=== PATIENT | male | born 1990 | race Asian ===

== ENCOUNTER 2019-01-25 02:00 | Inpatient (IN) | payer MEDICAID ==
[~2019-01-25] VITALS: Ht 177.8 cm; Wt 111.5 kg
[~2019-01-25 02:00] MED LIST: SULF1TAB60 PO; TRAM50TA2 PO
[2019-01-25] MEDS ORDERED: cloNIDine HCL 0.1 MG TAB ONE ×2 (02:20→02:26)
[2019-01-25] MEDS ORDERED: SODIUM CHLORIDE 0.9% 1,000 ML IV ONE (07:39)
[2019-01-25 08:41] LABS: Basophils # (auto) 0.1 uL; Basophils % (auto) 1.4 % (0.0-2.0); Eosinophils # (auto) 0.1 uL; Eosinophils % (auto) 1.3 % (0.0-7.0); Hemoglobin 14.7 g/dL (13.5-17.5); Lymphocytes # (auto) 2.4 uL; Lymphocytes % (auto) 24.9 % (10.0-50.0); Mean Corpuscular Hemoglobin 30.5 pg (28.0-32.0); Mean Corpuscular Volume 87.1 fL (80.0-100.0); Monocytes # (auto) 0.6 uL; Neutrophils # (auto) 6.3 uL; Neutrophils % (auto) 66.4 % (37.0-80.0); Platelet Count (auto) 223 10^3/uL (140-450); Red Blood Cells 4.81 10^6/uL (4.5-5.90); Red Cell Distribution Width 13.2 % (11.8-14.3); White Blood Cell 9.5 10^3/uL (4.4-10.8)
[2019-01-25] MEDS ORDERED: LABETALOL HCL 5 MG/ML ML 20ML VIAL IV ONE (09:00)
[2019-01-25] MEDS ORDERED: hydrALAZINE HCL 20 MG/ML VL IV ONE (09:00)
[2019-01-25 09:02] LABS: Albumin 3.8 g/dL (3.4-5.0); BUN/Creatinine Ratio 11.6; Calcium 8.4 mg/dL (8.5-10.1); Magnesium 2.3 mg/dL (1.6-2.6)
[2019-01-25 09:06] LABS: Bilirubin, Total 0.8 mg/dL (0.2-1.0); Total Protein 7.5 g/dL (6.4-8.2)
[2019-01-25 09:15] LABS: Potassium 4.1 mmol/L (3.5-5.1)
[2019-01-25] MEDS ORDERED: METOPROLOL TARTRATE 1MG/1ML-5ML VIAL IV ONE (09:15)
[2019-01-25] MEDS: NICARDIPINE 25MG/250ML BAG KIT 250 ML IV SCH ×2 (11:19→16:00)
[2019-01-25] MEDS ORDERED: IOHEXOL 300 MG/ML 100ML BOTTLE IJ ONE (12:04)
[2019-01-25] MEDS ORDERED: HYDROcodone-ACET 5/325MG TAB PO PRN (12:15)
[2019-01-25] MEDS ORDERED: amLODIPine BESYLATE 5 MG TAB PO ONE (12:15)
[2019-01-25] MEDS ORDERED: MORPHINE SULF INJ 2 MG/ML SYRINGE 1ML IV PRN (12:15)
[2019-01-25] MEDS ORDERED: ACETAMINOPHEN 500 MG TAB PO PRN (12:15)
[2019-01-25] MEDS ORDERED: NITROGLYCERIN 0.4 MG SL TAB SL PRN (12:15)
[2019-01-25] MEDS ORDERED: ONDANSETRON HCL 4 MG/2 ML VIAL IV PRN (12:15)
[2019-01-25 12:48] LABS: Alcohol, Urine < 3.0 mg/dL (0-5); Amphetamine Screen, Urine NEGATIVE (NEGATIVE); Barbiturate Scree,Urine NEGATIVE (NEGATIVE); Benzodiazephine Screen, Urine NEGATIVE (NEGATIVE); Cannabinoid Screen, Urine NEGATIVE (NEGATIVE); Cocaine Screen, Urine NEGATIVE (NEGATIVE); Opiate Scree,Urine NEGATIVE (NEGATIVE); Phencyclidine Screen, Urine NEGATIVE (NEGATIVE)
[2019-01-25] MEDS ORDERED: LABETALOL HCL 200 MG TAB PO PRN (15:15)
--- NOTE | 2019-01-25 19:24 | NUR ---
Telemetry admit from ER ANASTASIA LAZO admitted to Telemetry unit after SBAR received from jessa Gibbons RN. Patient oriented to LYLY GORE RN primary RN, unit, room, bed, and unit policies regarding patient care and visiting hours. Patient now on continuous telemetry monitoring, tele box # [id number] and telemetry reading on arrival to unit is sinus rhythm with [address] depression. Patient weighed by bedscale and encouraged to call if they need something. All questions and concerns addressed, patient verbalized understanding. Bed in lowest locked position, side rails up x2, call light within reach. Patient able to ambulate with steady gait noted. No s/s of distress. Will continue to monitor.
[2019-01-25 19:50] VITALS: BP 161/107
[2019-01-25] MEDS ORDERED: INFLUENZA QUAD 2018-2019 0.5 ML SYRG IM ONE (20:00)
--- NOTE | 2019-01-25 21:23 | NUR ---
Smoking AMA ANASTASIA LAZO states they want to leave the floor Against Medical Advice (AMA) to go outside and smoke. Patient encouraged to stay on floor and not smoke. Patient advised of the risks and benefits of leaving AMA. Patient verbalized understanding and signed required AMA form. No s/s of distress. Will continue to monitor.
[2019-01-25 21:54] VITALS: BP 161/107
[2019-01-25] MEDS: MORPHINE SULF INJ 2 MG/ML SYRINGE 1ML IV PRN (22:19)
--- NOTE | 2019-01-25 23:29 | NUR ---
Closing Note Patient lying in bed, awake and alert. No s/s of distress. Bed in lowest locked position, side rails up x2, call light within reach. Care endorsed to Harriet GODOY for continuation of care.
--- NOTE | 2019-01-25 23:30 | NUR ---
RECEIVED REPORT FROM JAYNE DESOUZA PATIENT IS SITTING UP IN BED EATING SANDWICH BROUGHT IN BY FAMILY NO S/S OF DISTRESS. PATIENT STATED PAIN LEVEL IS "LIKE A 1 OR A 2 RIGHT NOW" CALL LIGHT WITHIN REACH
[2019-01-25] MEDS: LABETALOL HCL 200 MG TAB PO SCH (23:37)
[2019-01-25] MEDS: LISINOPRIL 20 MG TAB PO SCH (23:38)
[2019-01-26 05:12] VITALS: BP 128/81
--- NOTE | 2019-01-26 07:21 | NUR ---
CLOSING NOTE REPORT ENDORSED TO DAY SHIFT RN PT IS RESTING IN BED. NO S/S OF DISTRESS CALL LIGHT WITHIN REACH
--- NOTE | 2019-01-26 07:30 | NUR ---
OPENING SHIFT PATIENT IS AWAKE, ALERT, AND ORIENTED X4. RESPIRATIONS EVEN AND UNLABORED. NO S/S OF DISTRESS, SOB, OR PAIN. DISCUSSED POC WITH PATIENT, PATIENT VERBALIZED UNDERSTANDING. BED IS IN LOWEST POSITION, SIDE RAILS UP X2, AND CALL LIGHT WITHIN REACH. WILL CONTINUE TO MONITOR Q1 HOUR AND PRN.
[2019-01-26 08:36] VITALS: BP 133/74
--- NOTE | 2019-01-26 10:00 | NUR ---
PATIENT DOWN TO SMOKE AMA IN CHART PATIENT REFUSES SMOKING CESSATION EDUCATION
[2019-01-26] MEDS: LABETALOL HCL 200 MG TAB PO SCH ×2 (10:22→21:32)
[2019-01-26] MEDS: amLODIPine BESYLATE 5 MG TAB PO SCH (10:22)
[2019-01-26] MEDS: LISINOPRIL 20 MG TAB PO SCH ×2 (10:23→21:32)
--- NOTE | 2019-01-26 12:10 | NUR ---
PATIENT DOWN TO SMOKE AMA IN CHART PATIENT REFUSES SMOKING CESSATION EDUCATION
[2019-01-26 13:00] VITALS: BP 155/59
--- NOTE | 2019-01-26 15:00 | NUR ---
PATIENT DOWN TO SMOKE AMA IN CHART PATIENT REFUSES SMOKING CESSATION EDUCATION
--- NOTE | 2019-01-26 16:16 | NUR ---
ELEVATED BP PAGED DR. Chad SPENCE LEFT A MESSAGE REGARDING PATIENT'S BLOOD PRESSURE/ LAB VALUES THERE IS CURRENTLY NO PRN BP MEDICATION AVAILABLE WILL AWAIT M.D. CALL BACK
--- NOTE | 2019-01-26 16:18 | NUR ---
SMOKING CESSATION EDUCATION PATIENT EDUCATED ON EFFECTS OF SMOKING CIGARETTES ON BLOOD VESSELS/ BLOOD PRESSURE PATIENT FAMILY AT BEDSIDE PATIENT HAS BEEN LEAVING TO SMOKE THROUGHOUT DAY, BLOOD PRESSURE IS ELEVATED PATIENT AND FAMILY VERBALIZED UNDERSTANDING
--- NOTE | 2019-01-26 16:39 | NUR ---
DR. Chad SPENCE CALLED BACK NEW ORDERS PLACED FOR PRN BP MEDICATION ORDERS READ BACK AND VERIFIED
[2019-01-26] MEDS ORDERED: hydrALAZINE HCL 20 MG/ML VL IV PRN (16:45)
[2019-01-26 16:58] VITALS: BP 162/87
--- NOTE | 2019-01-26 18:43 | NUR ---
END OF SHIFT PATIENT AWAKE IN BED WATCHING T.V. NO S/S OF DISTRESS, SOB, OR PAIN. BED IS IN LOWEST POSITION, SIDE RAILS UP X2, AND CALL LIGHT WITHIN REACH. WILL ENDORSE CARE TO MEDICAL INSURANCE VERIFIER R.N.
--- NOTE | 2019-01-26 18:43 | NUR ---
BP REASSESSMENT BP 130/70 mmHG after PRN HYDRALAZINE administered NO S/S OF DISTRESS, SOB, OR PAIN
[2019-01-26 18:44] VITALS: BP 130/70
--- NOTE | 2019-01-26 19:26 | NUR ---
RECEIVED PATIENT FROM DAY SHIFT RN. PATIENT RESTING IN BED. NO S/S OF DISTRESS NOTED. DENIED PAIN. POC INSTRUCTED AND ENCOURAGED PATIENT TO CALL FOR SADDLE CUTTER IF NEEDED. BED IN LOWEST POSITION WITH SIDE RAILS UP X 2. CALL GUNDERSON WITHIN REACH. CONTINUE TO MONITOR FOR CHANGES Q1H AND PRN.
--- NOTE | 2019-01-26 21:00 | NUR ---
PATIENT OFF FLOOR TO SMOKE.
--- NOTE | 2019-01-26 21:20 | NUR ---
PATIENT BACK TO FLOOR. NO S/S OF DISTRESS NOTED. CONTINUE CARE.
[2019-01-26 22:00] VITALS: BP 168/92
[2019-01-26] MEDS: MORPHINE SULF INJ 2 MG/ML SYRINGE 1ML IV PRN (23:13)
--- NOTE | 2019-01-26 23:14 | NUR ---
PATIENT C/O HEADACHE @ 03/23, OFFERED PATIENT TYLENOL AT FIRST, BUT PATIENT SAID THAT THE TYLENOL NOT HELP AND HE PREFERRED MORPHINE. MEDICATED PATIENT ORDERED PER PATIENT REQUESTED. CONTINUE TO MONITOR.
[2019-01-27] MEDS ORDERED: hydrALAZINE HCL 25 MG TAB PO ONE (00:30)
--- NOTE | 2019-01-27 00:48 | NUR ---
PATIENT OUT OF FLOOR TO SMOKE.
--- NOTE | 2019-01-27 01:04 | NUR ---
PATIENT BACK TO FLOOR, NO S/S OF DISTRESS NOTED. CONTINUE CARE.
[2019-01-27 04:53] VITALS: BP 142/89
--- NOTE | 2019-01-27 05:18 | NUR ---
PATIENT SLEEPING. NO S/S OF DISTRESS NOTED. CONTINUE CARE.
[2019-01-27 05:32] LABS: Basophils # (auto) 0.1 uL; Basophils % (auto) 1.1 % (0.0-2.0); Eosinophils # (auto) 0.2 uL; Hematocrit 43.5 % (41.0-53.0); Hemoglobin 14.6 g/dL (13.5-17.5); Lymphocytes # (auto) 3.2 uL; Lymphocytes % (auto) 30.3 % (10.0-50.0); Mean Corpuscular Hemoglobin 29.6 pg (28.0-32.0); Mean Corpuscular Hgb Conc. 33.6 g/dL (32.0-36.0); Monocytes # (auto) 0.8 uL; Monocytes % (auto) 8.1 % (0.0-12.0); Neutrophils # (auto) 6.1 uL; Neutrophils % (auto) 58.5 % (37.0-80.0); Nucleated Red Blood Cells % 0.1 %; Platelet Count (auto) 197 10^3/uL (140-450); Red Blood Cells 4.95 10^6/uL (4.5-5.90); Red Cell Distribution Width 13.6 % (11.8-14.3); White Blood Cell 10.4 10^3/uL (4.4-10.8)
[2019-01-27 05:54] LABS: Calcium 8.2 mg/dL (8.5-10.1)
[2019-01-27 05:56] LABS: BUN/Creatinine Ratio 14.9
[2019-01-27] MEDS: hydrALAZINE HCL 25 MG TAB PO SCH ×3 (06:16→17:40)
--- NOTE | 2019-01-27 07:32 | NUR ---
OPENING SHIFT PATIENT IS ASLEEP IN BED. NO S/S OF DISTRESS, SOB, OR PAIN. RESPIRATIONS EVEN AND UNLABORED. BED IS IN LOWEST POSITION, SIDE RAILS UP X2, AND CALL LIGHT WITHIN REACH. WILL CONTINUE TO MONITOR Q1 HOUR AND PRN.
[2019-01-27 09:00] VITALS: BP 150/83
--- NOTE | 2019-01-27 09:01 | NUR ---
CALLED DR. Chad SPENCE LEFT A MESSAGE WITH Isiah REGARDING PATIENT LAB VALUES THIS MORNING (01/27/19) 0500 POTASSIUM IS 3.0 PREVIOUS POTASSIUM (01/25/19) WAS 4.1 WILL AWAIT Isiah CALL BACK
--- NOTE | 2019-01-27 09:04 | NUR ---
CARDIOLOGY/NEPHRO CONSULTS BOTH WERE CALLED AT 05:12 THIS A.M. BY [facility] ATTENDANT , RAUL MONTERROSO RECALLED BY THIS R.N THIS A.M. [address] BARNARD'S OFFICE [phone] ,SPOKE TO GRAPHIC EDITOR YESENIA, SHE SAID SHE WOULD CONTACT DR. BARNARD PERI CALLED [facility] [phone], INFORMED DR. BURR IS CALENDER LET OFF OPERATOR FOR [facility] AND WOULD BE CONTACTED RIGHT AWAY
[2019-01-27] MEDS: LABETALOL HCL 200 MG TAB PO SCH ×2 (10:12→22:03)
[2019-01-27] MEDS: amLODIPine BESYLATE 5 MG TAB PO SCH (10:13)
[2019-01-27] MEDS: LISINOPRIL 20 MG TAB PO SCH ×2 (10:13→22:03)
--- NOTE | 2019-01-27 11:05 | NUR ---
OFF UNIT TO SMOKE PATIENT OFF UNIT TO SMOKE
--- NOTE | 2019-01-27 11:11 | NUR ---
DR. AMINAH Young AT BEDSIDE PATIENT OFF UNIT SMOKING HAD PATIENT PAGED BY PBX TO RETURN TO ROOM
[2019-01-27 12:40] VITALS: BP 140/85
--- NOTE | 2019-01-27 12:47 | NUR ---
DR. EVON Joyce SAID FROM CARDIOLOGY POINT OF VIEW PATIENT IS CLEARED FOR DISCHARGE
[2019-01-27] MEDS: POTASSIUM CHL 20 Meq TABLET PO SCH (12:51)
[2019-01-27 16:59] VITALS: BP 113/73
--- NOTE | 2019-01-27 18:37 | NUR ---
END OF SHIFT PATIENT AWAKE IN BED WATCHING T.V. NO S/S OF DISTRESS, SOB, OR PAIN. BED IS IN LOWEST POSITION, SIDE RAILS UP X2, AND CALL LIGHT WITHIN REACH. WILL ENDORSE CARE TO CARPENTER'S HELPER R.N.
--- NOTE | 2019-01-27 19:30 | NUR ---
RECEIVED PATIENT FROM DAY SHIFT RN. PATIENT RESTING IN BED. NO S/S OF DISTRESS NOTED. DENIED PAIN. POC INSTRUCTED AND ENCOURAGED PATIENT TO CALL FOR LEAD [employer] ARCHITECT IF NEEDED. BED IN LOWEST POSITION WITH SIDE RAILS UP X 2. CALL GUNDERSON WITHIN REACH. CONTINUE TO MONITOR FOR CHANGES Q1H AND PRN.
--- NOTE | 2019-01-27 20:26 | NUR ---
PATIENT OUT OF FLOOR TO SMOKE.
--- NOTE | 2019-01-27 20:45 | NUR ---
PATIENT BACK TO FLOOR. NO S/S OF DISTRESS NOTED. CONTINUE CARE.
[2019-01-27 22:00] VITALS: BP 160/92
[2019-01-28] MEDS ORDERED: POTASSIUM CHL 20MEQ/100ML 100 ML IV ONE (00:15)
[2019-01-28] MEDS: MORPHINE SULF INJ 2 MG/ML SYRINGE 1ML IV PRN (00:15)
--- NOTE | 2019-01-28 00:16 | NUR ---
PATIENT C/O HEADACHE 02/20. MEDICATED PATIENT ORDERED. CONTINUE TO MONITOR.
--- NOTE | 2019-01-28 02:41 | NUR ---
PATIENT RESTING IN BED. NO S/S OF DISTRESS NOTED. POTASSIUM RUNNING WELL ORDERED. CONTINUE CARE.
--- NOTE | 2019-01-28 04:37 | NUR ---
PATIENT SLEEPING. NO S/S OF DISTRESS NOTED. CONTINUE CARE.
[2019-01-28 04:55] VITALS: BP 150/73
[2019-01-28] MEDS: hydrALAZINE HCL 25 MG TAB PO SCH ×4 (06:00→18:53)
[2019-01-28 06:05] LABS: Potassium 3.5 mmol/L (3.5-5.1)
[2019-01-28 06:08] LABS: Calcium 8.4 mg/dL (8.5-10.1)
[2019-01-28 06:10] LABS: Basophils # (auto) 0.1 uL; Basophils % (auto) 0.9 % (0.0-2.0); Eosinophils # (auto) 0.2 uL; Eosinophils % (auto) 2.6 % (0.0-7.0); Hematocrit 41.3 % (41.0-53.0); Hemoglobin 13.9 g/dL (13.5-17.5); Lymphocytes % (auto) 34.6 % (10.0-50.0); Mean Corpuscular Hemoglobin 30.1 pg (28.0-32.0); Mean Corpuscular Hgb Conc. 33.6 g/dL (32.0-36.0); Mean Corpuscular Volume 89.7 fL (80.0-100.0); Monocytes # (auto) 0.6 uL; Monocytes % (auto) 6.9 % (0.0-12.0); Neutrophils # (auto) 4.8 uL; Nucleated Red Blood Cells % 0.1 %; Platelet Count (auto) 186 10^3/uL (140-450); Red Cell Distribution Width 13.2 % (11.8-14.3); White Blood Cell 8.7 10^3/uL (4.4-10.8)
[2019-01-28 06:11] LABS: BUN/Creatinine Ratio 13.6
--- NOTE | 2019-01-28 07:30 | NUR ---
OPENING SHIFT NOTE: Received report from NOC RNRosa. Assumed care of patient. Patient is sleeping. No signs or symptoms of pain. Bed in lowest position, rails x2 up and call light within reach. Updated board with plan of care. Will continue to monitor.
[2019-01-28 09:00] VITALS: BP 152/78
[2019-01-28] MEDS: POTASSIUM CHL 20 Meq TABLET PO SCH (10:32)
[2019-01-28] MEDS: LABETALOL HCL 200 MG TAB PO SCH ×2 (10:33→21:45)
[2019-01-28] MEDS: amLODIPine BESYLATE 5 MG TAB PO SCH (10:35)
[2019-01-28] MEDS: LISINOPRIL 20 MG TAB PO SCH ×2 (10:36→21:45)
--- NOTE | 2019-01-28 12:53 | NUR ---
MD: Dr Leopoldo Vaughn paged regarding plan of care and possible discharge.
[2019-01-28 13:00] VITALS: BP 138/74
--- NOTE | 2019-01-28 13:20 | NUR ---
MD: T/C from Dr Leopoldo Vaughn. MD plans to round on patient's around 1500. MD asked to get cardio and nephro clearance for discharge. Cardio clearance already documented from Dr Castañeda. No clearance noted in Dr Borja's recent note. Paged for clearance clarification.
[2019-01-28 16:33] VITALS: BP 132/73
--- NOTE | 2019-01-28 18:55 | NUR ---
CLOSING SHIFT NOTE: Report given to NOC RNRosa. Endorsed care of patient. Patient still waiting for Dr Leopoldo Vaughn to round.
--- NOTE | 2019-01-28 19:31 | NUR ---
RECEIVED PATIENT FROM DAY SHIFT RN. PATIENT RESTING IN BED. NO S/S OF DISTRESS NOTED. DENIED PAIN. POC INSTRUCTED AND ENCOURAGED PATIENT TO CALL FOR WELDER BOILERMAKER IF NEEDED. BED IN LOWEST POSITION WITH SIDE RAILS UP X 2. CALL GUNDERSON WITHIN REACH. CONTINUE TO MONITOR FOR CHANGES Q1H AND PRN.
[2019-01-28 22:00] VITALS: BP 137/76
--- NOTE | 2019-01-28 22:12 | NUR ---
MD PEREZATTASH AT BEDSIDE AND DISCHARGING PATIENT.
--- NOTE | 2019-01-28 22:22 | NUR ---
MD BAEZ CALLED AND CLEARED PATIENT FOR D/C.
[2019-01-28] MEDS ORDERED: LAB200T PO (22:28)
[2019-01-28] MEDS ORDERED: HYDR-4296 PO (22:28)
[2019-01-28] MEDS ORDERED: LISI-646 PO (22:28)
[2019-01-28] MEDS ORDERED: AML5T PO (22:28)
[2019-01-28 22:37] VITALS: BP 137/76
--- NOTE | 2019-01-28 23:07 | NUR ---
Discharge instructions given as ordered. Encourage to follow up with PMD as instructed. All questions and concerns addressed. Patient verbalized understanding. Medication reconciliation form completed and copy given to patient. needed vaccines given. IV removed with catheter intact, pressure dressing applied,. Telemetry unit returned to ICU. Patient WALKED to vehicle with all personal belongings, accompanied by staff and family member. No distress noted at time of departure.
== END 2019-01-28 23:00 | disposition home or self-care (01) | DRG 52 ==
LOC: ER 02:03 → TELE 12:08 → TELE-WESTW 19:30
PROVIDERS: ADMIT Nurse Practitioner Acute Care; ATTEND Internal Medicine
DX: I67.4 Hypertensive encephalopathy (principal); K76.0 Fatty (change of) liver, not elsewhere classified; E66.01 Morbid (severe) obesity due to excess calories; I16.0 Hypertensive urgency; I10 Essential (primary) hypertension; E87.6 Hypokalemia; F17.210 Nicotine dependence, cigarettes, uncomplicated; Z91.14 Patient's other noncompliance with medication regimen; Z68.35 Body mass index [BMI] 35.0-35.9, adult; Z91.19 Patient's noncompliance with other medical treatment and regimen
CPT/HCPCS: 36415; 71046; 74177; 76775; 80048; 80053; 80307; 82088; 83735; 84244; 84443; 84484; 85025; 90674; 93005; 93306; 94761; 96361; 96374; 96375; G0378; J3480

== ENCOUNTER → 2019-04-13 | Outpatient (CLI) | payer MEDICAID, OTHER ==
[~2019-04-13] MED LIST changes: +AML5T PO; +HYDR-4296 PO; +LAB200T PO; +LISI-646 PO; -SULF1TAB60 PO; -TRAM50TA2 PO
[2019-04-13 16:37] LABS: Hepatitis B Surface Antibody Positive
[2019-04-13 17:49] LABS: Hepatitis B Surface Antigen Negative (Negative)
== END | disposition home or self-care (01) ==
LOC: LAB 15:17
DX: Z57.8 Occupational exposure to other risk factors (principal)
CPT/HCPCS: 36415; 86703; 86706; 86803; 87340

== ENCOUNTER → 2019-07-06 | Outpatient (CLI) | payer OTHER | END | disposition home or self-care (01) | LOC: LAB 14:55 | DX: Z57.8 Occupational exposure to other risk factors (principal) | CPT/HCPCS: 36415; 86703; 86803 ==

== ENCOUNTER → 2019-08-19 | Outpatient (CLI) | payer OTHER | END | disposition home or self-care (01) | LOC: LAB 15:48 | DX: Z77.21 Contact with and (suspected) exposure to potentially hazardous body fluids (principal) | CPT/HCPCS: 36415; 86703; 86803 ==

== ENCOUNTER 2023-11-05 14:18 | Emergency (ER) | payer MEDICAID, OTHER ==
[~2023-11-05] VITALS: Ht 177.8 cm; Wt 113.1 kg
[~2023-11-05 14:18] MED LIST changes: -LAB200T PO; +LABE200T6 PO; -LISI-646 PO; +LISI20TA56 PO
[2023-11-05 16:36] VITALS: BP 173/118; PULSE 119; RESP 16; TEMP 97.2; O2SAT 95
== END 2023-11-05 17:31 | disposition home or self-care (01) ==
LOC: ER 14:18
DX: J06.9 Acute upper respiratory infection, unspecified (principal); I51.7 Cardiomegaly; I10 Essential (primary) hypertension; F17.210 Nicotine dependence, cigarettes, uncomplicated; R07.89 Other chest pain
CPT/HCPCS: 71046